=== PATIENT | male | born 1965 | race Caucasian/White ===

== ENCOUNTER 2017-04-28 09:01 | Emergency (ER) | payer OTHER ==
[2017-04-28 09:12] VITALS: BP 135/90
[2017-04-28] MEDS ORDERED: DIPHTH,PERTUSS(ACELL),TET VAC 0.5 ML VIAL IM ONE ×2 (09:47→09:48)
--- NOTE | 2017-04-28 10:02 | ERNOTE ---
Medical Problem HPI - Narrative Date of Service: 04/28/17 - General Chief Complaint: Laceration Time Seen by Provider: 04/28/17 09:17 Source: patient - Immun/Allergies/Home Medications Immunizations: IMMUNIZATION HX Immunizations Up to Date Yes History of Influenza Vaccine No Hx Pneumococcal Vaccination No Allergies/Adverse Reactions: Allergies No Known Allergies Allergy (Verified 04/28/17 09:13) Home Medications: HOME MEDICATIONS NK [No Home Medication] 04/28/17 [Last Taken Unknown] - History of Present History Narrative: patient states he was walking around a piece of equipment at work when the side of his head hit the machine resulting in a 2cm laceration to the right side of his scalp. Date (Duration): 04/28/17 Timing: constant Severity: mild Modifying Factors - (Improves): Present: cold therapy Modifying Factors - (Worsens): Present: movement Review of Systems - Review of Systems Constitutional: Present: no symptoms reported EYE: Present: no symptoms reported ENT: Present: no symptoms reported Respiratory: Present: no symptoms reported Cardiology: Present: no symptoms reported Genitourinary: Present: no symptoms reported Musculoskeletal: Present: no symptoms reported Skin: Present: See HPI, lesions Neurological: Present: no symptoms reported Endocrine: Present: no symptoms reported Hematologic/Lymphatic: Present: no symptoms reported Psych: Present: no symptoms reported All Other Systems: All systems neg except as marked - Patient's Past Medical History Patient History - Medical: No pertinent hx Patient History - Cardiac/Respiratory: No pertinent hx Patient History - Cancer: No Hx of Cancer Patient History - Surgical Procedures: Orthopedic Patient History - Other: None - Social History Living Situations: home Abuse History: No History of abuse Psych History: No pertinent hx Smoking Status: Never smoker Alcohol Use: heavy Drug Use: none - Immunizations Immunizations Up to Date: Yes Hx Pneumococcal Vaccination: No History of Influenza Vaccine: No Physical Exam - Physical Exam Narrative: 2cm laceration observed to the right side of of patient head. bleeding controlled. patient denies any other injury, no observed at this time. General Appearance: Present: wd/wn, alert, no apparent distress Head Exam: Present: normal inspection, lacerations. Absent: active bleeding Eye Exam: Normal inspection: bilateral, PERRL: bilateral, EOMI: bilateral Ears, Nose, Throat: Present: normal ENT inspection, normal pharynx Neck: Present: normal inspection, nontender, supple, full range of motion Respiratory: Present: no respiratory distress, normal breath sounds, no accessory muscle use, chest nontender, lungs clear Cardiovascular/Chest: Present: regular rate, rhythm, no murmur, normal peripheral pulses Gastrointestinal/Abdominal: Present: normal bowel sounds, nontender, nondistended, soft, no organomegaly Back Exam: Present: normal inspection, normal range of motion, no CVA tenderness , no vertebral tenderness Extremity Exam: Present: normal inspection, non-tender, normal range of motion, no edema Neurological Exam: Present: alert, oriented, normal mood/affect, no motor/ sensory deficits, 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 Absent: facial droop, motor weakness Skin Exam: Present: normal color, warm/dry, other - laceration right side of head Lymphatic Exam: Present: no adenopathy ED Progress - Vital Signs Patient's Vital Signs:: I have reviewed the patient's vital signs. Vital Signs: Vital Signs 04/28/17 09:09 Temperature 36.7 C Pulse Rate 95 Respiratory 16 Rate Blood Pressure 135/90 O2 Sat by Pulse 98 Oximetry - Progress/Reassessment Chief Complaint: Laceration Progress:: Improved Procedures Right Lateral Head Body Front/Back Adult: 1 - 2cm laceration Anesthesia: 1% Lidocaine Length of Repair/Wound (cm): 2 Wound's Depth/Shape: into subcutaneous Wound Explored: clean Distal NVT: neuro/vasc intact Wound Repaired With: higinio - 3 Wound Dressing: sterile dressing applied Complications: Pt armin procedure well Plan - Plan Plan: patient will follow up with ED or PCP for staple removal in 7-10 days. patient agrees with plan of care. patient given t-DAP SHOT. Departure Clinical Impression: Laceration of head Qualifiers: Encounter type: initial encounter Location of open wound of head: scalp Foreign body presence: without foreign body Qualified Code(s): S01.01XA - Laceration without foreign body of scalp, initial encounter - Departure Disposition: Home Follow Up Needed Condition: Good Instructions: Stitches, [place], or Adhesive Wound Closure, [id number] Additional Instructions: CONTINUE ANY PREVIOUS HOME MEDICATION DIRECTED. YOU MAY TAKE OVER THE COUNTER PAIN MEDICATIONS DIRECTED. FOLLOW UP WITH YOUR PRIMARY DOCTOR FOR STAPLE REMOVAL IN 7-10 DAYS. RETURN TO THE ER FOR ANY S/S OF INFECTION TO THE WOUND, AND ANY NEW SYMPTOMS.
== END 2017-04-28 10:15 | disposition home or self-care (01) ==
LOC: ER 09:01
PROC: 0JQ00ZZ Repair Scalp Subcutaneous Tissue and Fascia, Open Approach (ICD-10-PCS; principal; 2017-04-28)
DX: S01.01XA Laceration without foreign body of scalp, initial encounter (principal); X58.XXXA Exposure to other specified factors, initial encounter; Y92.69 Other specified industrial and construction area as the place of occurrence of the external cause; Y99.0 Civilian activity done for income or pay; Z23 Encounter for immunization